=== PATIENT | female | born 1955 | race Caucasian/White ===

== ENCOUNTER 2017-11-21 19:15 | Emergency (ER) | payer BC ==
[~2017-11-21] VITALS: Ht 172.7 cm; Wt 92.9 kg
[2017-11-21 23:28] VITALS: BP 137/72
== END 2017-11-21 23:29 | disposition home or self-care (01) ==
LOC: EME 19:15
PROC: 3E0234Z Introduction of Serum, Toxoid and Vaccine into Muscle, Percutaneous Approach (ICD-10-PCS; principal; 2017-11-21)
DX: Z20.3 Contact with and (suspected) exposure to rabies (principal); Z23 Encounter for immunization; Z29.14 Encounter for prophylactic rabies immune globulin; Z87.891 Personal history of nicotine dependence
CPT/HCPCS: 99281; 99284